=== PATIENT | female | born 1990 | race Caucasian/White ===

== ENCOUNTER 2020-07-01 22:46 | Emergency (ER) | payer OTHER, SELFPAY ==
--- NOTE | 2020-07-02 00:30 | US_ITS ---
EXAMINATION: ULTRASOUND PELVIS. CLINICAL INFORMATION: Vaginal bleeding. Recent 2 months ago with IUD placement. COMPARISON: None TECHNIQUE: Transabdominal and transvaginal ultrasound pelvis is performed. FINDINGS: The uterus is retroverted, retroflexed measuring 7.8 cm in length, 5.0 cm in AP and 6.7 cm in transverse dimension. Endometrial thickness is not seen due to an IUD. Right ovary measures 3.2 x 2.1 x 1.1 cm and volume 3.9 mL. It appears unremarkable. Left ovary measures 2.5 x 2.4 x 1.7 cm and volume 5.3 mL. It appears unremarkable. There is no fracture fluid in the cul-de-sac. IMPRESSION: Retroverted uterus with an IUD in the endometrial canal in good position. No focal lesion seen. Unremarkable ovaries. No free fluid in the cul-de-sac.
[2020-07-02 01:25] LABS: Anion Gap 14 (12-20); Blood Urea Nitrogen 10 mg/dL (9-16); Carbon Dioxide 25 mmol/L (22-29); Chloride 106 mmol/L (96-108); Estimated Glomerular Filt Rate > 60; Potassium 4.1 mmol/l (3.3-5.1); Sodium 141 mmol/L (135-145)
[2020-07-02 01:48] LABS: Glucose Random 87 mg/dL (60-115)
[2020-07-02 04:16] LABS: Appearance Urine CLEAR; Color Urine YELLOW; Glucose Urine UA NEG (NEG); Urine Blood 3+ (NEG)
[2020-07-02 04:17] LABS: Leukocyte Esterase Urine TRACE (NEG); Nitrite Urine NEG (NEG); Specific Gravity - Urine <= 1.005 (1.005-1.025); UPreg QC Valid YES; Urine Ketones NEG (NEG); Urine Pregnancy NEGATIVE (NEGATIVE); Urine Protein NEG (NEG-TRACE)
[2020-07-02 04:19] LABS: Bacteria Urine TRACE /LPF; Mucus Urine TRACE /LPF; Squamous Epithelial Cell Urine 1+ /LPF
[2020-07-02 04:49] LABS: MANUAL DIFF FLAG NO
[2020-07-02 04:52] LABS: Basophils Absolute Auto 0.1 X10*3/uL (0.0-0.2); Basophils Percent Auto 0.8 % (0-2); Eosinophils Absolute Auto 0.3 X10*3/uL (0.0-0.4); Eosinophils Percent Auto 3.2 % (0-4); Hemoglobin 13.4 g/dl (12.0-16.0); Imm Gran Abs Auto 0.03 X10*3/uL (0.00-0.03); Imm Gran Pct Auto 0.4 % (0.0-0.4); Lymphocytes Absolute Auto 3.7 X10*3/uL (1.2-4.9); Lymphocytes Percent Auto 46.5 % (20-40); Mean Corpuscular HGB Conc 32.7 g/dl (31.0-35.0); Mean Corpuscular Hemoglobin 27.7 pg (27.0-33.0); Mean Corpuscular Volume 84.9 fL (80-98); Mean Platelet Volume 10.8 fL (9.4-12.3); Monocytes Absolute Auto 0.7 X10*3/uL (0.1-1.2); Monocytes Percent Auto 8.7 % (2-11); Neutrophils Absolute Auto 3.2 X10*3/uL (2.0-8.3); Neutrophils Percent Auto 40.4 % (45-73); Platelet Count 314 X10*3/uL (160-400); Red Blood Count 4.83 X10*6/uL (4.20-5.50); White Blood Count 7.9 X10*3/uL (4.8-10.8)
== END 2020-07-02 01:15 | disposition home or self-care (01) ==
LOC: HO.ED 07-02 00:24
DX: T83.83XA Hemorrhage due to genitourinary prosthetic devices, implants and grafts, initial encounter (principal); N93.8 Other specified abnormal uterine and vaginal bleeding; Y76.1 Therapeutic (nonsurgical) and rehabilitative obstetric and gynecological devices associated with adverse incidents; Y92.9 Unspecified place or not applicable
CPT/HCPCS: 36415; 76856; 80051; 81001; 81025; 82565; 82947; 84520; 85025; 99284